=== PATIENT | female | born 1980 | race Hispanic/Latino ===

== ENCOUNTER 2016-11-04 16:05 | Emergency (ER) | payer OTHER ==
[2016-11-04] MEDS ORDERED: cefTRIAXone Inj 1 GM in Lidocaine Inj 1% 2.1 ML IM ONE (17:20)
[2016-11-04 17:24] VITALS: RESP 16; TEMP 97.9
--- NOTE | 2016-11-04 23:22 | PDOC ---
General Adult HPI - General Chief Complaint: General Medical Stated Complaint: NEEDS INJECTION FOR HER INFECTION Date Seen by Provider: 11/04/16 Time Seen by Provider: 16:30 Source: POSITIVE: Patient, Old records Exam Limitations: POSITIVE: No limitations Nurse's Notes Reviewed & Considered: Yes - History of Present Illness Initial Comment: The patient is a 36-year-old female. Patient was seen in the emergency room in [facility] on 27 October for abdominal pain. Patient had a CT scan of the abdomen and pelvis with IV contrast at that time. CT scan showed a 4 cm left ovarian cyst. Patient then had a pelvic ultrasound on that same day which showed a 3.9 cm left ovarian cyst and was otherwise unremarkable. Appendix was normal. Patient has had a tubal ligation. She followed up with her primary care provider on November 01, who did amplification probe testing for gonorrhea and chlamydia. The gonorrhea test subsequently came back positive; chlamydia test was negative. Patient was contacted by her primary care provider in [place] and was told to see a medical provider here in [place] for "an antibiotic injection". Patient lives in [place] but is here for the next several days taking care of some relatives. Patient therefore presents to the emergency room for treatment of gonorrhea. Patient has not had any fevers or chills. No dysuria or GI or symptoms. Have you received a tetanus shot in the past 10 years?: Yes Body Location Affected: REPORTS: Abdomen (As above) Timing: REPORTS: Constant Duration: >1 week (10-12 days) Severity: Moderate Quality: REPORTS: "Pain" (Lower abdomen) Context: DENIES: None, Sitting, Standing, Activity, Emotional stress, Coughing, Recent Trauma, Recent Surgery, Sleep, Rest, Lifting, Turning, Bending, Fall, Near Fall, Other Modifying Factors: improves with: Palpation. worse with: Analgesics, Antacids, Breathing, Coughing, Defecating, Vomiting, Eating, Exercise, Lying down, Urinating, Movement, Rest, Upright Position, Walking, Remaining Still Similar Symptoms Previously: Yes (as above) Recent Care Received: REPORTS: Recently Seen (As above) Any Prior Injuries Related to Current Complaint?: No - Patient Home Medications Home Medications: Home Medications Metformin HCl 1,000 mg ORAL BID 30 Days 02/24/12 Dicyclomine HCl [Bentyl] 20 mg PO QID PRN 11/04/16 Gabapentin 300 mg PO QID 11/04/16 HYDROcodone/APAP 10/325 Tab [[place] 10/325 Tab] 10 mg PO BID PRN 11/04/16 Lisinopril 5 mg PO DAILY 11/04/16 Naproxen 500 mg PO BID PRN 11/04/16 Omeprazole 40 mg PO DAILY 11/04/16 - Patient Allergies Allergies/Adverse Reactions: Allergies Allergy/AdvReac Type Severity Reaction Status Date / Time No Known Drug Allergies Allergy NOT Verified 11/04/16 16:33 APPLICABLE Past Medical History - heen HEENT History: Denies History Cardiovascular History: Hypertension Respiratory History: Asthma Gastrointestinal History: GERD, Diverticulitis, Other (please comment) Additional Gastrointestinal History: 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 Genitourinary History: Denies History Endocrine History: Type 2 Diabetes (oral) Musculoskeletal History: Denies History, Other (please comment) Additional Musculoskeletal History: PERIPHERAL NEUROPATHY Neurological History: Denies History Blood Disorders: Denies History Psychiatric History: Depression History of Sexually Transmitted Diseases: Yes (GONORRHEA) LMP: NOW Additional Obstetrical History: TUBAL LIGATION Cancer History: Denies History In Past Year Been Physically Harmed or Verbally Threatened: No History of MDRO: Yes Type of MDRO: C-Diff History of Other Communicable Diseases: No Tobacco Use: Current Every Day Smoker Alcohol Use: Occasionally Substance Use Type: None Previous Surgical History: Yes Type / Date of Surgery: FECAL TRANSPLANT 08/2016. TUBAL LIGATION Anesthesia Reactions: No Significant Family History: No pertinent family hx Past Medical History Reviewed: Reviewed - No Changes ROS - Limitations ROS Limitations: No Limitations Constitution: REPORTS: Denies Symptoms Cardiovascular: REPORTS: Denies Cardiac Symptoms Respiratory: REPORTS: Denies Resp Symptoms Neurological: REPORTS: Denies Neuro Symptoms Gastrointestinal: REPORTS: Abdominal Pain (Lower abdominal pain as above since before October 26) Endocrine: REPORTS: Denies Symptoms Musculoskeletal: REPORTS: Denies MS Symptoms Genitourinary: REPORTS: Denies Symptoms Eyes: REPORTS: Denies Symptoms ENT: REPORTS: Denies Symptoms Skin: REPORTS: Denies Skin Symptoms Lympathic: REPORTS: Denies Lympathic Symptoms Immunologic: POSITIVE: Denies Symptoms Psychiatric: POSITIVE: Denies Psych Symptoms General Adult Exam - General Appearance General Appearance: POSITIVE: Alert, Cooperative, No Acute Distress, No Evidence of Trauma - Pupils Pupil Size: 3 mm: Bilateral - Neck Neck: POSITIVE: Normal Inspection, Thyroid Normal - Respiratory Respiratory: POSITIVE: No Respiratory Distress, Breath Sounds Normal, Chest Non- Tender - Cardiovascular Cardiovascular: POSITIVE: Regular Rate & Rhythm, No Murmur, No Gallop, PMI Normal Peripheral Pulses: Radial (R): 2+, Radial (L): 2+ - Abdomen Abdomen: Soft: (All Quadrants), Normal Bowel Sounds: (All Quadrants), Denies Tenderness: (LUQ), (RUQ), No Splenomegaly: (All Quadrants), No Hepatomegaly: ( All Quadrants), No Guarding: (All Quadrants), No Rebound: (All Quadrants), No Palpable Pulse: (All Quadrants), No Palpabale Mass: (All Quadrants), No Distention: (All Quadrants), No Rigidity: (All Quadrants), Tenderness Noted: ( LLQ), (RLQ) Additional Abdominal Details: Abdominal examination shows bowel sounds be active. No masses, organomegaly or rebound. There is some discomfort expressed on firm deep direct palpation lower abdomen bilaterally, a little more on the left than the right. Pelvic examination shows a vagina to be normal. Mild tenderness on cervical manipulation. No gross discharge from the os. Patient does express some discomfort on firm palpation of the left adnexa; no definite masses palpated. - Back Back: POSITIVE: Normal Inspection. NEGATIVE: CVA Tenderness - Skin Skin: POSITIVE: Normal Color, Warm, Dry, No Rash - Extremities Extremity: Non-Tender: (All Extremities), Normal ROM: (All Extremities), Normal Inspection: (All Extremities) - Neurological / Psychological Neurological: POSITIVE: Oriented X3, career services coordinator Normal As Tested, Motor Normal, Sensation Normal, 5, 6 Procedures - Vaginal Exam Attendant in Room: Yes Patient Privacy Protected: Yes Vaginal Speculum: Disposable Light Source Used: Yes Swabs Collected for Possible Lab Tests: No Patient Tolerated Procedure: Good Procedure Note:: Pelvic examination showed no vaginal lesions. There was no gross discharge from the cervical os. Cervical manipulation showed mild tenderness in the adnexal area. There was some mild discomfort on firm palpation in the left adnexa; no adnexal masses were appreciated. General Adult Progress - Patient's Progress Pain Medication Addressed: POSITIVE: Yes (Patient received prescription for hydrocodone from her primary care provider on 01 november.) School/Work Release Addressed: POSITIVE: Not Applicable Re-Examine Time: 17:15 Re-Examine Comment: 1 g Rocephin IM given. Status: POSITIVE: Unchanged Antibiotics Given: Yes (Rocephin, 1 g IM) - Consult Counseled: POSITIVE: Patient, RE: Lab Results (Laboratory results from patient' s primary care provider, as well as CT scan and ultrasound from the emergency room in [facility] reviewed and discussed with patient) Patient Care Time - Estimated PCT Patient Care Time (In Minutes): 30 Vital Signs - Recent Vital Signs Vital Signs: Vital Signs (Last 8 hours) Temp Pulse Resp BP Pulse Ox 11/04/16 16:18 97.9 F 95 16 111/76 96 - VS Reviewed Vital Signs Reviewed: Yes Discharge Clinical Impression: Acute gonorrhea of genitourinary tract Discharge Disposition: Discharged to Home Condition: Good Patient Instructions Given at Discharge: Sexually Transmitted Diseases (ED) Additional Instructions: As you know, your tests for gonorrhea, which was done 3 days ago in [place], was positive. You have been treated for gonorrhea with an injection of Rocephin. Your tests for Chlamydia was negative. Please make sure all of your sexual contacts are evaluated by their primary care provider for sexually transmitted diseases. Return here anytime if condition worsens. Follow-up with your primary care provider in [place] when you return home in a few days. Return any time if you develop high fevers or chills. Follow Up With: NONE,NONE [Primary Care Provider] - (Instructions as above. Follow-up with your primary care provider in [place].)
== END 2016-11-04 17:45 | disposition home or self-care (01) ==
LOC: ER 16:05
DX: A54.09 Other gonococcal infection of lower genitourinary tract (principal); E11.40 Type 2 diabetes mellitus with diabetic neuropathy, unspecified
CPT/HCPCS: 96372; 99283; J0696; J2001